=== PATIENT | female | born 2000 | race Caucasian/White ===

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

== ENCOUNTER 2021-03-16 03:52 | Outpatient (CLI) | payer MEDICAID, SELFPAY ==
[2021-03-16 11:04] LABS: Abs Immature Grans 0.01 10^3/uL (0.0-0.06); Absolute Basophil Count 0.03 10^3/uL (0.0-0.2); Absolute Eosinophil Count 0.09 10^3/uL (0.0-0.7); Absolute Lymphocyte Count 1.96 10^3/uL (1.2-3.4); Absolute Monocyte Count 0.48 10^3/uL (0.1-0.8); Absolute Neutrophil Count 3.81 10^3/uL (1.2-6.7); Basophils % 0.5; Eosinophils % 1.4; HCT 45.9 % (36.0-46.0); HGB 15.4 g/dL (11.2-15.7); Immature Grans % 0.2; Lymphocytes % 30.7; MCH 28.5 pg (27.0-33.0); MCHC 33.6 % (32.0-36.0); MPV 8.9 fL (8.0-11.0); Monocytes % 7.5; Neutrophils % 59.7; Nucleated RBC 0 %; Platelet Count 179 10^3/uL (130-400); RDW 12.1 % (11.7-14.6); RDW-SD 37.7 fL; WBC 6.38 10^3/uL (4.4-10.8)
[2021-03-16 11:53] LABS: ALT 19 U/L (14-59); AST 12 U/L (15-37); Albumin 4.3 g/dL (3.4-5.0); Alkaline Phosphatase 61 U/L (46-116); Anion Gap 6.4 mmol/L (3-11); BUN 14 mg/dL (7-18); Bilirubin, Total 0.7 mg/dL (0.2-1.0); CO2 29.6 mmol/L (21.0-32.0); CREATININE 0.9 mg/dL (0.55-1.02); Calcium 9.4 mg/dL (8.5-10.1); Chloride 105 mmol/L (98-107); Glucose 65 mg/dL (74-106); Lipase 130 U/L (73-393); Potassium 4.4 mmol/L (3.5-5.1); Sodium 141 mmol/L (136-145); TSH (W/Ref FT4) 2.04 uIU/mL (0.52-4.13); Total Protein 7.6 g/dL (6.4-8.2)
[2021-03-19 11:03] LABS: HIV-1/2 Ag & Ab Screen Negative (Negative)
[2021-03-19 11:22] LABS: Hepatitis C Ab w Rflx HCV PCR Negative (Negative)
[2021-03-19 14:08] LABS: IgA 288 mg/dL (85-499); Interpretation (See Note); Tissue Transglutaminase IgA <1.2 U/mL (<4.0)
== END 2021-03-16 03:53 | disposition home or self-care (01) ==
LOC: LBO 03:55
PROVIDERS: PCP Nurse Practitioner Adult Health; Visit Provider Nurse Practitioner Adult Health
DX: R14.0 Abdominal distension (gaseous) (principal); R41.840 Attention and concentration deficit; Z00.00 Encounter for general adult medical examination without abnormal findings; Z11.4 Encounter for screening for human immunodeficiency virus [HIV]; Z11.59 Encounter for screening for other viral diseases; L65.9 Nonscarring hair loss, unspecified
CPT/HCPCS: 36415; 80053; 82784; 83516; 83690; 86803; 87389; 84443; 85025

== ENCOUNTER 2021-05-01 12:09 | Emergency (ER) | payer MEDICAID, SELFPAY ==
[2021-05-01 12:28] VITALS: BP 98/64; PULSE 89; RESP 16; TEMP 36.9; O2SAT 99
--- NOTE | 2021-05-01 12:47 | ED.GENADUL_ITS ---
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 Details Clinical Impression: UTI (urinary tract infection) Primary Care Provider: Emilie Evans ED Provider: Gabino Mariano Home Meds and New Rx's Prescriptions: New cephalexin 500 mg capsule 500 mg PO TID 5 Days Qty: 15 RF: 0 Continued multivitamin Tablet 1 tab PO QAM Qty: 90 RF: 3 Vyvanse 30 mg capsule 50 mg PO DAILY RF: 0 Discharge Instructions Instructions: Urinary Tract Infection in Women (ED) Additional Instructions: Small, frequent sips of fluids to maintain hydration. You will receive a phone call regarding your COVID-19 results. May use Tylenol and/or ibuprofen as needed for muscular ache or pain. Return to the ER for any acute concerns. Stand Alone Forms: PENDING COVID-19 TESTING Medical Decision Making This is an otherwise healthy 20-year-old female presents with days of urinary frequency, sensation of incomplete voiding as well as lower abdominal cramping. Says has been associated with some mild body ache, fatigue, malaise, worry about being sick and also associated mild sore throat without change to voice or swallowing. Patient is slightly hypotensive 98/64 on exam with thin body habitus. She is afebrile with a pulse of 89. Her exam does reveal mild suprapubic tenderness but no other symptoms or findings. Differential is broad including viral syndrome, UTI, anemia, dehydration, electrolyte abnormality, as well as pharyngitis. Patient had negative point of care rapid strep test. Screening urinalysis and labs obtained. Patient had IV access and was given 1 L fluid. Blood work is reassuring. Patient is improving with fluids. Patient does have evidence of urinary tract infection with positive leuk esterase and some mixed cells on micro urinalysis. Given her report of symptoms I do feel she ought to be treated for acute cystitis. HPI General Mode of arrival: ambulatory . Date/Time Provider Initiated Documentation: 05/01/21 12:19 . Limitations to Documentation: no limitations . Information obtained by: patient . History of Present Illness 20 year old F presents to the emergency department with the chief complaint of Multiple complaints, urinary frequency, described as mild, and is localized to the pelvis. Patient reports no radiation. Patient started experiencing this day(s) and it has been intermittent. No relieving factors improve symptom(s), No exacerbating factors reported . Patient notes other (Mild sore throat, lower abdomen cramping with urination, incomplete voiding); denies cough, fever/chills, shortness of breath and syncope. Patient did receive the following treatments prior to arrival, none Related Data Home Medications Medication Instructions Recorded Confirmed multivitamin 1 tab PO QAM #90 tab 03/02/21 05/01/21 lisdexamfetamine 30 mg capsule 50 mg PO DAILY 04/04/21 05/01/21 cephalexin 500 mg PO TID 5 Days #15 cap 05/01/21 Previous Rx's Medication Instructions Recorded multivitamin 1 tab PO QAM #90 tab 03/02/21 cephalexin 500 mg PO TID 5 Days #15 cap 05/01/21 Allergies Allergy/AdvReac Type Severity Reaction Status Date / Time No Known Drug Allergies Allergy Verified 03/30/21 15:20 General Stated Complaint: GenMedical ZACH: 3 Review of Systems Narrative: Sick contacts at work. No vaginal discharge or bleeding. No fever at home. Tolerated liquids and solids by mouth. 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 IEP signed 10/28/2017 Dysmenorrhea (10/24/15) Poor concentration Seborrheic dermatitis of scalp (11/25/17) Followed by Dr. Noonan. Suicide attempt Overdose 2014 Surgical History (Updated 03/02/21 @ 14:32 by Emilie Evans NP) S/P foot surgery, right [place], [place] Family History Father Mental disorder Myocardial infarction ? r/t substance use Psoriasis Substance abuse Depression Diabetes Mother Mental disorder Thyroid disorder Asthma Depression Social History Smoking/Tobacco Use Status: Current every day Tobacco Type: e-cigarettes Tobacco: How many years used: 1 Second Hand Exposure: No Smoking risk assessment performed?: Yes Alcohol Intake: never Drug use: Occasionally Substance use type: marijuana Adopted: No Caregiver/Support person: No Foster care: No Household members: significant other and family Housing: other Details: unstable housing - changes 17/03 Number of Children: 0 number of grandchildren: 0 Communication Needs: None Education Level: college Details: taking college classes at [employer] Do you need help understanding health information?: Rarely Pets and animals: Yes (3 cats) Pets and animals: cat(s) Sexually active: Yes Current gender identity: female What is your relationship status?: living with partner How often do you talk on the phone with friends or family?: once per week How often do you get together with friends or relatives?: once per week Do you belong to any clubs or organized social groups?: no Panel score (0-1 are the most socially isolated patients): 1 What type of physical activity do you participate in: walking Special santos needs: No Seatbelt use: always Drive intox or ride w/intox 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 Pleasant, well groomed, interactive. HEAD: Normocephalic, atraumatic ENT: Mucous membranes moist, oropharynx unremarkable, External ear exam unremarkable EYES: PERRL, EOMI NECK: Full ROM, no STEPHEN, no menigismus CHEST/RESP: Nontender, clear to auscultation bilateral, no wheeze/rhonchi/rales CARDIOVASCULAR: RRR, no murmur, rub derrek. 2+ Rad pulse bilateral ABDOMEN: Soft, minimal suprapubic tenderness without rebound or guarding, no mass. +Bowel sounds EXT: Full ROM, no edema, no rash Neuro: Grossly normal neurologic exam, conversant, interactive. Psych: Speech fluent, thoughts congruent, affect normal Course Vital Signs Vital signs: Vital Signs Temperature 36.9 C 05/01/21 12:28 Pulse 89 05/01/21 12:28 Respiratory Rate 16 05/01/21 12:28 Blood Pressure 98/64 L 05/01/21 12:28 Pulse Oximetry 99 05/01/21 12:28 Temperature 36.9 C 05/01/21 12:28 Temperature Source Temporal Artery Scan 05/01/21 12:28 Pulse 89 05/01/21 12:28 Respiratory Rate 16 05/01/21 12:28 Respiratory Effort Non-Labored 05/01/21 12:33 Blood Pressure 98/64 L 05/01/21 12:28 Blood Pressure Position Sitting 05/01/21 12:28 Pulse Oximetry 99 05/01/21 12:28 Oxygen Delivery Method Room Air 05/01/21 12:28 Oxygen Flow Rate 0 05/01/21 12:28 Pain Level 2 05/01/21 12:28 Lab/Test Results Lab/Test Results: POC Strep Test-PEPE(Rapid) Start: 05/01/21 12:33 Freq: .Rapid Strep Test Status: Active Protocol: Document 05/01/21 12:36 EC (Rec: 05/01/21 12:36 EC [id number]) Strep test-PEPE(Rapid)-POC POC-Strep test-PEPE (Rapid) Negative POC-Strep test-PEPE (Rapid) Negative
[2021-05-01] MEDS: Normal Saline 1,000 ML 1000 ML IV (12:59)
[2021-05-01] MEDS: Normal Saline Flush 10 ML SYR IVP (12:59)
[2021-05-01 13:13] LABS: HCT 45.5 % (36.0-46.0); HGB 15.3 g/dL (11.2-15.7); MCH 28.7 pg (27.0-33.0); MCHC 33.6 % (32.0-36.0); MCV 85.2 fL (80-95); MPV 9.1 fL (8.0-11.0); Platelet Count 136 10^3/uL (130-400); RBC 5.34 10^6/uL (3.93-5.22); RDW 12.4 % (11.7-14.6); RDW-SD 38.5 fL; WBC 4.45 10^3/uL (4.4-10.8)
[2021-05-01 13:14] LABS: Bilirubin Moderate (Negative); Blood Negative (Negative); Glucose Negative (Negative); Ketones 15 mg/dL (Negative); Leukocyte Esterase Trace (Negative); Nitrite Negative (Negative); Specific Gravity >= 1.030 (1.005-1.025)
[2021-05-01 13:16] LABS: Clarity Cloudy (Clear)
[2021-05-01 13:19] LABS: Anion Gap 8.9 mmol/L (3-11); BUN 8 mg/dL (7-18); CO2 28.1 mmol/L (21.0-32.0); Calcium 8.8 mg/dL (8.5-10.1); Chloride 105 mmol/L (98-107); Glucose 74 mg/dL (74-106); Potassium 3.6 mmol/L (3.5-5.1); Sodium 142 mmol/L (136-145)
[2021-05-01 13:33] LABS: Epithelial Cells Many HPF (Negative)
[2021-05-01 13:35] LABS: C & S Indicated? No/Sq. Contamination
[2021-05-01 13:42] VITALS: BP 96/60; PULSE 77; RESP 16; TEMP 36.6; O2SAT 100
[2021-05-01] MEDS: Cephalexin 500 MG CAP, 4 CAPS/BTL PO (13:43)
[2021-05-02 15:36] LABS: COVID-19 RT-PCR UVMMC Result Negative (Negative)
--- NOTE | 2021-05-02 18:37 | NUR.NOTE ---
Called Negative Covid test to [facility]. Verbalizes understanding.Nursing Note:
== END 2021-05-01 13:46 | disposition home or self-care (01) ==
PROVIDERS: Emergency Provider Emergency Medicine; PCP Nurse Practitioner Adult Health
DX: N39.0 Urinary tract infection, site not specified (principal); R10.30 Lower abdominal pain, unspecified; J02.9 Acute pharyngitis, unspecified; Z20.822 Contact with and (suspected) exposure to COVID-19; Z03.818 Encounter for observation for suspected exposure to other biological agents ruled out
CPT/HCPCS: 36415; 80048; 81025; 85027; 87880; 96360; 99284; U0003; 81003; 81015; 87081

== ENCOUNTER 2023-12-03 07:30 | Emergency (ER) | payer SELFPAY ==
[2023-12-03 07:32] VITALS: BP 127/78; PULSE 102; RESP 18; TEMP 36.4; O2SAT 100
--- NOTE | 2023-12-03 07:34 | ED.GENADUL_ITS ---
Discharge Plan Disposition Patient Disposition: Home Discharge Details Clinical Impression: Pyelonephritis Primary Care Provider: Emilie Evans ED Provider: Nima Ellis Home Meds and New Rx's Prescriptions: New ondansetron 4 mg tablet,disintegrating 4 mg PO BID 5 Days Qty: 10 0RF cefadroxil 500 mg capsule 1,000 mg PO BID 10 Days Qty: 40 0RF Discharge Instructions Instructions: Urinary Tract Infection in Women (ED) Additional Instructions: You were seen in the emergency department for your burning when you urinate. You were diagnosed with pyelonephritis as an infection of your kidneys. You received a dose of intramuscular antibiotics. Please take these antibiotics as prescribed for the next 10 days. Please also use this nausea medicine as needed. Please return to the emergency department if you cannot eat or drink as result of nausea and vomiting or if you develop any increasing pain. For your pain please take medications as follows: 1. Take acetaminophen (Tylenol), 500 mg tabs every 6 hours [2. Take ibuprofen (Advil), 00 mg every 12 hours.] HPI General Date/Time Provider Initiated Documentation: 12/03/23 07:34 . HPI Narrative: MDM This is a previously healthy mildly tachycardic but afebrile 23-year-old female with complicated cystitis based on urinary frequency dysuria urgency plus systemic symptoms of nausea vomiting for which patient will receive treatment for pyelonephritis with 1 g of ceftriaxone. Will assess electrolytes given vomiting. No right upper quadrant tenderness to suggest Mamadou-Isidro Og syndrome. No abnormal vaginal discharge to suggest sexually transmitted infe ction. No pain out of proportion to suggest necrotizing soft tissue infection. No flank pain or history of nephrolithiasis to suggest ureterolithiasis so I do not feel that the patient requires CT scan. Will obtain a urinalysis to ensure the patient is not . No right lower quadrant tenderness no fevers to suggest appendicitis. No left lower quadrant tenderness to suggest diverticulitis. No right upper quadrant tenderness to suggest acute cholecystitis. No chest pain to suggest PE. No rash to abdomen to suggest zoster. I considered sepsis however the patient is quite well-appearing and so I did not draw a lactate blood cultures nor treat empirically with IV antibiotics. 7:55 AM [id number] test negative. 8:04 AM Urinalysis showing hematuria with leukoesterase and glucosuria. Nitrite negative but based on symptoms we will treat with ceftriaxone. Patient did not consent for an IV to be placed as she had had prior poor experiences with IV use. She was amenable to ceftriaxone intramuscularly. Will ensure her mild tachycardia resolves and will write her with a course of cefadroxil 1000 mg every 12 hours based on ease of dosing. We discussed return to the ED for intractable nausea vomiting or any worsening pain. I also prescribed her a short course of ondansetron for nausea. Repeat heart rate 83 bpm. Patient and I discussed her return indications. Patient understood her return indications and was discharged with an empiric trial of expectant outpatient management. 10 AM CBC shows leukocytosis but no anemia. No thrombocytopenia. Patient metabolic panel showing no BRAYDON. No anion gap. No hyperglycemia. 10:27 AM Patient became quite anxious with IV placement and was mildly tachycardic at the time of discharge. She had had a normal heart rate during the course of her ED stay. Chronic conditions affecting the care of the patient: N/A History obtained from an outside historian: N/A External record review: N/A Medications: Ondansetron ceftriaxone Social determinants of health affecting disposition: N/A Management discussed with: N/A Treatment/interventions considered: N/A Response to therapies provided: No vomiting in the ED HPI This is a previously healthy 23-year-old female up-to-date with immunizations not on any home medications arrived to the emergency department via private vehicle in the setting of urinary frequency hematuria dysuria for the past approximately 1 week. Patient attempted to treat her symptoms by drinking lots of water. Her symptoms transiently improved but then worsened. She has been in [place] for the past 4 to 5 days and had worsening symptoms. She woke up this morning with suprapubic discomfort and vomited. This was at 5 AM. She has no history of nephrolithiasis. She has had no surgeries to her stomach. She uses tobacco but denies routine ethanol and illicits. She has had no fevers chills chest pain or shortness of breath. Patient is sexually active with a male partner. She denies abnormal vaginal discharge. Exam General: Well-appearing in no acute distress speaking in complete sentences. Head: Normocephalic, atraumatic. Eye: Extraocular eye movements intact. No conjunctival injection. No scleral icterus. Ear, nose, mouth, throat: Grossly normal inspection. Normal voice, handling secretions normally. Neck: Trachea midline. Cardiovascular: Well-perfused distal extremities. Regular rate and rhythm Respiratory: Nonlabored respiration. Clear lungs bilaterally Gastrointestinal: Nondistended abdomen. Soft. Mild suprapubic tenderness. No rebound. No guarding. No right lower quadrant tenderness. No left lower quadrant tenderness. No right upper quadrant tenderness. Musculoskeletal: No edema. Moving all 4 extremities spontaneously. Skin: Normal for age and race, grossly normal temperature and turgor. No acute rash. Neurologic: Alert and appropriate, no apparent acute deficits. Psychiatric: Mood and manner are appropriate. Grooming and personal hygiene are appropriate. Related Data Home Medications Medication Instructions Recorded Confirmed cefadroxil 500 mg capsule 1,000 mg (2 x 500 mg) PO BID 12/03/23 days #40 caps ondansetron 4 mg disintegrating 4 mg PO BID 5 days #10 tabs 12/03/23 tablet Previous Rx's Medication Instructions Recorded cefadroxil 500 mg capsule 1,000 mg (2 x 500 mg) PO BID 12/03/23 days #40 caps ondansetron 4 mg disintegrating 4 mg PO BID 5 days #10 tabs 12/03/23 tablet Allergies Allergy/AdvReac Type Severity Reaction Status Date / Time No Known Drug Allergies Allergy Verified 03/30/21 15:20 General ZACH: 3 Medical Decision Making Quality:SDOH Health Related Social Needs: No Data to Display PFSH All Active Problems (Updated 12/03/23 @ 08:06 by Nima Ellis MD) Pyelonephritis (Acute) UTI (urinary tract infection) (Acute) Generalized anxiety disorder (Acute) Major depression in partial remission (Acute) ADHD (attention deficit hyperactivity disorder), combined type (Acute) Poor concentration (Acute) Abdominal bloating (Acute) Seborrheic dermatitis of scalp (Chronic 11/25/17) Followed by Dr. Noonan. 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 IEP signed 10/28/2017 Dysmenorrhea (10/24/15) Poor concentration Seborrheic dermatitis of scalp (11/25/17) Followed by Dr. Noonan. Suicide attempt Overdose 2015 Surgical History (Updated 07/09/21 @ 14:32 by Emilie Evans NP) S/P foot surgery, right [facility], [place] Family History Father Mental disorder Myocardial infarction ? r/t substance use Psoriasis Substance abuse Depression Diabetes Mother Mental disorder Thyroid disorder Asthma Depression Social History Smoking/Tobacco Use Status: Current every day Tobacco Type: e-cigarettes Tobacco: How many years used: 1 Second Hand Exposure: No Smoking risk assessment performed?: Yes Alcohol Intake: never Drug use: Occasionally Substance use type: marijuana Adopted: No Caregiver/Support person: No Foster care: No Household members: significant other and family Housing: other Details: unstable housing - changes 17/03 Number of Children: 0 number of grandchildren: 0 Communication Needs: None Education Level: college Details: taking college classes at [employer] Do you need help understanding health information?: Rarely Pets and animals: Yes (3 cats) Pets and animals: cat(s) Sexually active: Yes Current gender identity: female What is your relationship status?: living with partner How often do you talk on the phone with friends or family?: once per week How often do you get together with friends or relatives?: once per week Do you belong to any clubs or organized social groups?: no Panel score (0-1 are the most socially isolated patients): 1 What type of physical activity do you participate in: walking Special santos needs: No Seatbelt use: always Drive intox or ride w/intox 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
[2023-12-03 07:39] VITALS: O2SAT 98
[2023-12-03 07:52] LABS: Bilirubin Small (Negative); Blood Small (Negative); Clarity Cloudy (Clear); Glucose 100 mg/dL (Negative); Ketones 40 mg/dL (Negative); Leukocyte Esterase Small (Negative); Nitrite Negative (Negative); Specific Gravity >= 1.030 (1.005-1.025); pH 5.5 (5-8)
[2023-12-03 08:10] VITALS: BP 104/57; PULSE 83; RESP 16; TEMP 36.5; O2SAT 98
[2023-12-03 08:17] LABS: Bacteria Few HPF (Negative); C & S Indicated? No/Sq. Contamination; Crystals Negative HPF (Negative); Epithelial Cells Moderate HPF (Negative); Mucus Trace (Negative); WBC >50 HPF (0-5)
[2023-12-03] MEDS: Ondansetron O.D.T. 4 MG TABEF PO (08:22)
[2023-12-03 09:46] LABS: Abs Immature Grans 0.05 10^3/uL (0.0-0.06); Absolute Basophil Count 0.04 10^3/uL (0.0-0.2); Absolute Eosinophil Count 0.04 10^3/uL (0.0-0.7); Basophils % 0.3; Eosinophils % 0.3; HCT 45.2 % (36.0-46.0); HGB 15.7 g/dL (11.2-15.7); Immature Grans % 0.3; Lymphocytes % 6.5; MCH 29.3 pg (27.0-33.0); MCHC 34.7 % (32.0-36.0); MCV 84 fL (80-95); Monocytes % 4.4; Neutrophils % 88.2; Platelet Count 185 10^3/uL (130-400); RBC 5.36 10^6/uL (3.93-5.22); RDW 11.9 % (11.7-14.6); RDW-SD 35.8 fL
[2023-12-03] MEDS: cefTRIAXone 1 GM/50 ML BAG IVPB (09:49)
[2023-12-03] MEDS: Normal Saline 1,000 ML 1000 ML IV (09:50)
[2023-12-03 09:54] LABS: Absolute Lymphocyte Count 0.96 10^3/uL (1.2-3.4); Absolute Monocyte Count 0.65 10^3/uL (0.1-0.8); Absolute Neutrophil Count 12.97 10^3/uL (1.2-6.7)
[2023-12-03 09:56] LABS: Anion Gap 9.1 mmol/L (3-11); BUN 10 mg/dL (7-18); CO2 28.9 mmol/L (21.0-32.0); CREATININE 0.9 mg/dL (0.55-1.02); Chloride 103 mmol/L (98-107); Glucose 92 mg/dL (74-106); Potassium 4.2 mmol/L (3.5-5.1); Sodium 141 mmol/L (136-145)
[2023-12-03 10:23] VITALS: BP 102/70; PULSE 100; RESP 18; O2SAT 98
== END 2023-12-03 10:23 | disposition home or self-care (01) ==
LOC: ER 08:19
PROVIDERS: Emergency Provider Emergency Medicine; PCP Nurse Practitioner Adult Health
DX: N12 Tubulo-interstitial nephritis, not specified as acute or chronic (principal); F17.290 Nicotine dependence, other tobacco product, uncomplicated
CPT/HCPCS: 80048; 81025; 96365; 96372; 96375; 99284; 81003; 81015; 85025; J0696

== ENCOUNTER 2024-02-22 21:50 | Emergency (ER) | payer SELFPAY ==
[2024-02-22 22:20] VITALS: BP 119/82; PULSE 90; RESP 22; TEMP 36.6; O2SAT 100
--- NOTE | 2024-02-22 23:09 | ED.GENADUL_ITS ---
Discharge Plan Disposition Patient Disposition: Home Condition: Stable Discharge Details Clinical Impression: Acute streptococcal pharyngitis Primary Care Provider: Emilie Evans ED Provider: Khoa Greco Home Meds and New Rx's Prescriptions: New penicillin V potassium 500 mg tablet 500 mg PO TID 10 Days Qty: 30 0RF Discharge Instructions Instructions: Strep Throat ED Additional Instructions: Please help with your primary physician. Return to the emerged part for any worsening symptoms HPI General Date/Time Provider Initiated Documentation: 02/22/24 22:29 . HPI Narrative: 23-year-old female history of recurrent strep presents with sore throat over the last couple of days completed course of Augmentin last month Related Data Home Medications Medication Instructions Recorded Confirmed penicillin V potassium 500 mg 500 mg PO TID 10 days #30 tabs 02/22/24 tablet Previous Rx's Medication Instructions Recorded penicillin V potassium 500 mg 500 mg PO TID 10 days #30 tabs 02/22/24 tablet Allergies Allergy/AdvReac Type Severity Reaction Status Date / Time No Known Drug Allergies Allergy Verified 03/30/21 15:20 General Stated Complaint: Sorethroat ZACH: 4 Review of Systems Narrative: Review of Systems Constitutional: negative Eyes: negative ENT: Sore throat Cardiovascular: negative Respiratory: negative Gastrointestinal: negative : negative Musculoskeletal: negative Skin: negative Neurologic: negative Psych: negative Exam Narrative Exam Narrative: Physical Examination General: alert, awake, cooperative, resting comfortably, no acute distress HEENT: normocephalic, atraumatic; PERRL, EOM intact, conjunctiva normal; no nasal discharge; mild erythema to bilateral tonsils without exudate, midline uvula, tolerating secretions no stridor Neck: supple, trachea midline; full ROM Chest: normal to inspection Respiratory: normal respiratory effort, speaking in full sentences, clear to auscultation, no wheezing, rales or rhonchi Cardiac: regular rate, regular rhythm, S1S2 intact, no murmurs rubs or gallops Skin: no lesions, rashes or trauma appreciated Neuro: AAOx3, normal speech, moving all extremities Psych: Appropriate mood and affect Course Vital Signs Vital signs: Vital Signs Temperature 36.6 C 02/22/24 22:20 Pulse 90 02/22/24 22:20 Respiratory Rate 02/22/24 22:20 Blood Pressure 119/82 02/22/24 22:20 Pulse Oximetry 100 02/22/24 22:20 Temperature 36.6 C 02/22/24 22:20 Temperature Source Temporal Artery Scan 02/22/24 22:20 Pulse 90 02/22/24 22:20 Respiratory Rate 22 02/22/24 22:20 Respiratory Effort Normal, Non-Labored 02/22/24 22:25 Blood Pressure 119/82 02/22/24 22:20 Blood Pressure Position Sitting 02/22/24 22:20 Pulse Oximetry 100 02/22/24 22:20 Oxygen Delivery Method Room Air 02/22/24 22:20 Oxygen Flow Rate 0 02/22/24 22:20 Lab/Test Results Lab/Test Results: POC Strep Test-PEPE(Rapid) Start: 02/22/24 22:54 Freq: .Rapid Strep Test Status: Active Protocol: Document 02/22/24 22:55 LB (Rec: 02/22/24 22:55 LB [id number]) Strep test-PEPE(Rapid)-POC POC-Strep test-PEPE (Rapid) Positive POC-Strep test-PEPE (Rapid) Positive Medical Decision Making 23-year-old female presents with recurrent sore throat, strep throat last month treated with Augmentin, sore throat over the last couple of days mildly erythematous tonsils bilaterally without exudate, midline uvula tolerating secretions no stridor afebrile nontoxic no hypoxia no respiratory distress. Likely recurrent pharyngitis, strep positive will treat with penicillin V will dose dexamethasone, home care instructions return precautions given. No evidence of deep space infection of head or neck. No evidence of airway compromise Quality:SDOH Health Related Social Needs: No Data to Display PFSH All Active Problems (Updated 02/22/24 @ 23:12 by Khoa Greco MD) Acute streptococcal pharyngitis (Acute) UTI (urinary tract infection) (Acute) Generalized anxiety disorder (Acute) Major depression in partial remission (Acute) ADHD (attention deficit hyperactivity disorder), combined type (Acute) Poor concentration (Acute) Abdominal bloating (Acute) Seborrheic dermatitis of scalp (Chronic 11/25/17) Followed by Dr. Noonan. 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 IEP signed 10/28/2017 Dysmenorrhea (10/24/15) Poor concentration Seborrheic dermatitis of scalp (11/25/17) Followed by Dr. Noonan. Suicide attempt Overdose 2014 Surgical History (Updated 03/02/21 @ 14:32 by Emilie Evans NP) S/P foot surgery, right [place], [place] Family History Father Mental disorder Myocardial infarction ? r/t substance use Psoriasis Substance abuse Depression Diabetes Mother Mental disorder Thyroid disorder Asthma Depression Social History Smoking/Tobacco Use Status: Current every day Tobacco Type: cigarettes and e- cigarettes Tobacco: How many years used: 1 Second Hand Exposure: No Smoking risk assessment performed?: Yes Alcohol Intake: current Alcohol Intake frequency: a few times a month Drug use: Occasionally Substance use type: marijuana Details: shrooms Adopted: No Caregiver/Support person: No Foster care: No Household members: significant other and family Housing: other Details: unstable housing - changes 17/03 Number of Children: 0 number of grandchildren: 0 Communication Needs: None Education Level: college Details: taking college classes at [employer] Do you need help understanding health information?: Rarely Pets and animals: Yes (3 cats) Pets and animals: cat(s) Sexually active: Yes Current gender identity: female What is your relationship status?: living with partner How often do you talk on the phone with friends or family?: once per week How often do you get together with friends or relatives?: once per week Do you belong to any clubs or organized social groups?: no Panel score (0-1 are the most socially isolated patients): 1 What type of physical activity do you participate in: walking Special santos needs: No Seatbelt use: always Drive intox or ride w/intox bus 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 supervisor: No Water heater temp set <120 deg: Yes Do you feel safe at home: Yes Do you feel safe in your relationship?: Yes History History 2 Para Hx # Term Pregnancies Multiple births Hx # Pregnancies Ectopic pregnancies AB induced 1 Hx Number of Living Children AB spontaneous 1 PAWSS Have you Been Recently Intoxicated or Drunk Within the Last 30 days?: No Have you Ever Experienced Previous Episodes of Alcohol Withdrawal?: No Have you ever Experienced Withdrawal Seizures?: No Have you ever Experienced Delirium Tremens(DT)s?: No Have you ever undergone Alcohol Rehabilitation Treatment (i.e, inpt ot outpatient treatment programs)?: No Have you ever Experienced Blackouts?: No Have you ever Combined Alcohol with other Downers within the last 90 days?: No Have you ever Combined Alcohol with any other Substance of Abuse during the last 90 days?: No Positive Blood Alcohol level on Presentation? [PCS.BAL]: No Evidence of Increased Autonomic Activity (i.e. HR>120, tremor, sweating, agitation, nausea)?: No Result: 0
[2024-02-22] MEDS: Penicillin V POTASSIUM 500 MG TAB PO (23:19)
[2024-02-22] MEDS: Dexamethasone 4 MG TAB 8 MG PO (23:19)
== END 2024-02-22 23:21 | disposition home or self-care (01) ==
PROVIDERS: Emergency Provider Emergency Medicine; PCP Nurse Practitioner Adult Health
DX: J02.0 Streptococcal pharyngitis (principal)
CPT/HCPCS: 87880; 99283; 99284; J8540

== ENCOUNTER 2024-06-27 13:28 | Emergency (ER) | payer MEDICAID, SELFPAY ==
[2024-06-27 13:35] VITALS: BP 108/72; PULSE 87; RESP 16; TEMP 36.8; O2SAT 100
[2024-06-27 14:00] VITALS: BP 108/72; PULSE 87; RESP 16; TEMP 36.8; O2SAT 100
--- NOTE | 2024-06-27 14:30 | ED.GENADUL_ITS ---
Discharge Plan Disposition Patient Disposition: Home Condition: Good Discharge Details Clinical Impression: Bacterial vaginosis, Genital labial fissure, Emergency contraceptive counseling, UTI (urinary tract infection) Primary Care Provider: Emilie Evans ED Provider: Costa Painter Home Meds and New Rx's Prescriptions: New metronidazole 500 mg tablet 500 mg PO BID 7 Days Qty: 14 0RF estradiol 1 mg/gram (0.1 %) gel in packet 1 mg transdermal DAILY Qty: 30 0RF cephalexin 500 mg capsule 500 mg PO QID 5 Days Qty: 20 0RF Discharge Instructions Instructions: Metronidazole (Systemic), Levonorgestrel (Systemic), Bacterial Vaginosis ED Additional Instructions: As we discussed together at this time you do have continued evidence of bacterial vaginosis. Please take the metronidazole as directed. Please avoid alcohol use. At this time you have decided to hold off on prophylactic go norrhea and chlamydia treatment. You will be contacted if your test results are positive. If you have not heard back in the next few days for the test results, please do not hesitate to reach out to us. In regards to the small labial fissure, please apply the estradiol cream every day to the affected area. In between these applications please apply Vaseline to that area to help in the mucous membrane and skin rejuvenation. Please avoid any intercourse for the next 2 to 4 weeks to allow that area to heal thoroughly. And when you do regain intercourse, please use plenty of lubrication to prevent any trauma to that area. Please make sure to always utilize protection for your partners. Additionally you have a urinary tract infection. Please take the antibiotic Keflex as directed. If you notice any worsening of your symptoms, or any new symptoms such as vomiting, diarrhea, fever, chills, shortness of breath, chest pain, numbness, weakness, or fainting , please return immediately to the emergency department for reevaluation. Please follow up with your primary care provider as soon as possible for reassessment and reevaluation. As always, it was a pleasure participating in your medical care today. Referrals: Emilie Evans, [employer] [Primary Care Provider] - Iliana Mcdaniel MD [ [facility] STAFF PHYSICIAN] - [facility] General Date/Time Provider Initiated Documentation: 06/27/24 13:41 . HPI Narrative: This is a 23-year-old female who presents today for evaluation of genital pain. Patient states that over the last year she has noticed notable pain and sensitivity by her left labia. She is sexually active, and does not currently use protection. Patient states that this has been going on for some time. However about 2 weeks ago in addition to this pain she noted significant vaginal discharge. She was tested at [facility] for gonorrhea and chlamydia which was negative. She was tested for bacterial vaginosis which was positive and vaginal yeast infection which was also positive. She initially was treated with Monistat, and then without improvement she was transition to oral fluconazole x 2. She was also given metronidazole gel for bacterial vaginosis. She avoided sexual intercourse for about a week and 1/2 to 2 weeks, and all of her symptoms resolved for about 48 hours, and then yesterday she had an episode of unprotected intercourse which she states she does not remember all of the details of. She states that it may have been somewhat rough, and states that she immediately had left-sided labial pain again and mild swelling. She presents today for further assessment. She does admit to mild urinary frequency. She has been taking oral contraceptive for the past week. Last menstrual cycle was about a month ago. No other complaints at this time. She denies being assaulted. She denies rape. She states that she does not want any further evaluation in regards to that. Related Data Home Medications ?Medication ?Instructions ?Recorded ?Confirmed cephalexin 500 mg capsule 500 mg PO QID 5 days #20 caps 06/27/24 estradiol 1 mg/gram (0.1 %) 1 mg transdermal DAILY #30 grams 06/27/24 transdermal gel packet metronidazole 500 mg tablet 500 mg PO BID 7 days #14 tabs 06/27/24 Previous Rx's ?Medication ?Instructions ?Recorded cephalexin 500 mg capsule 500 mg PO QID 5 days #20 caps 06/27/24 estradiol 1 mg/gram (0.1 %) 1 mg transdermal DAILY #30 grams 06/27/24 transdermal gel packet metronidazole 500 mg tablet 500 mg PO BID 7 days #14 tabs 06/27/24 Allergies Allergy/AdvReac Type Severity Reaction Status Date / Time No Known Drug Allergies Allergy none Verified 06/27/24 13:45 General Stated Complaint: Urinary ZACH: 4 Review of Systems All systems reviewed & are unremarkable except as noted in HPI and below Exam Narrative Exam Narrative: 1.Const: Well-nourished, Well-developed, appearing stated age 2.Eyes: PERRL, no conjunctival injection, and symmetrical lids. 3.ENT: Atraumatic external nose and ears. Moist MM. Neck: Symmetric, trachea midline, No thyromegaly. 4.CVS: +S1/S2, Peripheral pulses 2+ and equal in all extremities. Brisk cap illary refill in all extremities. 5.RESP: Unlabored respiratory effort. Clear to auscultation bilaterally. No wheezes rales or rhonchi 6.GI: Soft, Nontender/Nondistended, No hepatosplenomegaly. No guarding or rebound. Vaginal exam was performed with female nurse Ana Paula at bedside. Vaginal exam demonstrates no significant vaginal discharge. No ulcers or cuts. No active bleeding. Right vaginal area and labia are nontender. Left posterior labia demonstrates what appears to be a small lateral fissure along the lateral border of the labia for the inferior component. There also appears to be a very small fissure in the inferior crux of the vagina. Speculum exam because notable tenderness in that area. And mild pain with insertion. No large amount of discharge intravaginally. However there is a small scant amount of discharge present. No cervical motion tenderness. Cervix itself is nonerythematous. No large lesions that I can visualize. Bimanual exam is negative for pain. 7.MSK: Normocephalic/Atraumatic, Extremities w/o deformity or ttp No cyanosis or clubbing, Normal movement of all extremities 8.Skin: Warm, Dry. No rashes or lesions. 9.Neuro: clinical product specialist II-XII grossly intact. Sensation grossly intact, no focal neurologic deficits. 10.Psych: (AAO) x3. Appropriate mood and affect Course Vital Signs Vital signs: Vital Signs Temperature 36.8 C 06/27/24 13:35 Pulse 87 06/27/24 13:35 Respiratory Rate 16 06/27/24 13:35 Blood Pressure 108/72 06/27/24 13:35 Pulse Oximetry 100 06/27/24 13:35 Temperature 36.8 C 06/27/24 14:00 Temperature Source Temporal Artery Scan 06/27/24 14:00 Pulse 87 06/27/24 14:00 Respiratory Rate 16 06/27/24 14:00 Respiratory Effort Normal, Non-Labored 06/27/24 13:46 Blood Pressure 108/72 06/27/24 14:00 Blood Pressure Position Sitting 06/27/24 14:00 Pulse Oximetry 100 06/27/24 14:00 Oxygen Delivery Method Room Air 06/27/24 14:00 Oxygen Flow Rate 0 06/27/24 14:00 Pain Level 4 06/27/24 14:00 Lab/Test Results Lab/Test Results: 06/27/24 14:27 Vaginal Vaginitis Screen - Pending Medical Decision Making This is a 23-year-old female who presents today for evaluation of genital pain. Patient states that over the last year she has noticed notable pain and sensitivity by her left labia. She is sexually active, and does not currently use protection. Patient states that this has been going on for some time. However about 2 weeks ago in addition to this pain she noted significant vaginal discharge. She was tested at [facility] for gonorrhea and chlamydia which was negative. She was tested for bacterial vaginosis which was positive and vaginal yeast infection which was also positive. She initially was treated with Monistat, and then without improvement she was transition to oral fluconazole x 2. She was also given metronidazole gel for bacterial vaginosis. She avoided sexual intercourse for about a week and 1/2 to 2 weeks, and all of her symptoms resolved for about 48 hours, and then yesterday she had an episode of unprotected intercourse which she states she does not remember all of the details of. She states that it may have been somewhat rough, and states that she immediately had left-sided labial pain again and mild swelling. She presents today for further assessment. She does admit to mild urinary frequency. She has been taking oral contraceptive for the past week. Last menstrual cycle was about a month ago. No other complaints at this time. She denies being assaulted. She denies rape. She states that she does not want any further evaluation in regards to that. Vaginal exam was performed with female nurse Ana Paula at bedside. Vaginal exam demonstrates no significant vaginal discharge. No ulcers or cuts. No active bleeding. Right vaginal area and labia are nontender. Left posterior labia demonstrates what appears to be a small lateral fissure along the lateral border of the labia for the inferior component. There also appears to be a very small fissure in the inferior crux of the vagina. Speculum exam because notable tenderness in that area. And mild pain with insertion. No large amount of discharge intravaginally. However there is a small scant amount of discharge present. No cervical motion tenderness. Cervix itself is nonerythematous. No large lesions that I can visualize. Bimanual exam is negative for pain. My concern is for potential mild labial fissure causing the majority of her pain. While there certainly could still be underlying component of bacterial vaginosis or Rose to the cause of her pain I do not see symptoms that would be consistent with pelvic inflammatory disease that she has no cervical motion tenderness or severe significant cervical discharge. I did contact Dr. Mcdaniel for her recommendations for this fissure, and recommendations include estradiol ointment apply daily, alternatively betamethasone ointment would be an option. Also recommended daily Vaseline application and abstinence as possible. We will recheck for infectious etiologies, monitor closely and reassess. 4 3 PM Vaginal smear is positive for bacterial vaginosis, urinalysis is positive for UTI with trace leuk esterase and 20-50 WBCs. Patient has declined prophylactic treatment for gonorrhea chlamydia and will await test results instead. Patient is requesting Plan B. She does not want any further counseling or help in regards to this otherwise. We will get this. For the UTI we will give Keflex, for the prolonged bacterial vaginosis will give oral metronidazole, we have instructed her on the avoidance of alcohol consumption. We we will give a prescription for the estradiol ointment, as well as the recommendations for Vaseline use, pelvic rest, the importance of protection during intercourse, and close follow-up. She has declined referral to OB, but we will give her their number if she does change her mind. Patient is otherwise stable. test negative here. I have extensively reviewed the treatment plan and discharge instructions with the patient. I have addressed all patient concerns at this time. The patient was made aware of what symptoms to monitor for that would warrant a return to the emergency department. Discussed the plan with the patient, they demonstrate verbal understanding and agreement with our assessment and plan at this time. The documentation in this chart was dictated using beatlab dictation software. Please excuse any dictation errors. Quality:SDOH Health Related Social Needs: No Data to Display PFSH All Active Problems (Updated 06/27/24 @ 16:04 by Costa Painter DO) UTI (urinary tract infection) (Acute) Emergency contraceptive counseling (Acute) Genital labial fissure (Acute) Bacterial vaginosis (Acute) UTI (urinary tract infection) (Acute) Generalized anxiety disorder (Acute) Major depression in partial remission (Acute) ADHD (attention deficit hyperactivity disorder), combined type (Acute) Poor concentration (Acute) Abdominal bloating (Acute) Seborrheic dermatitis of scalp (Chronic 11/25/17) Followed by Dr. Noonan. 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 IEP signed 10/28/2017 Surgical History S/P foot surgery, right [place], [place] Family History Father Mental disorder Myocardial infarction ? r/t substance use Psoriasis Substance abuse Depression Diabetes Mother Mental disorder Thyroid disorder Asthma Depression Social History Smoking/Tobacco Use Status: Current every day Tobacco Type: cigarettes and e- cigarettes Tobacco: How many years used: 1 Second Hand Exposure: No Smoking risk assessment performed?: Yes Alcohol Intake: current Alcohol Intake frequency: a few times a month Alcohol type: hard liquor Details: shrooms user Adopted: No Caregiver/Support person: No Foster care: No Household members: significant other and family Housing: other Details: unstable housing - changes 17/03 Number of Children: 0 number of grandchildren: 0 Communication Needs: None Education Level: college Details: taking college classes at [employer] Do you need help understanding health information?: Rarely Pets and animals: Yes (3 cats) Pets and animals: cat(s) Sexually active: Yes Current gender identity: female What is your relationship status?: living with partner How often do you talk on the phone with friends or family?: once per week How often do you get together with friends or relatives?: once per week Do you belong to any clubs or organized social groups?: no Panel score (0-1 are the most socially isolated patients): 1 What type of physical activity do you participate in: walking Special santos needs: No Seatbelt use: always Drive intox or ride w/intox shuttle van driver: No Water heater temp set <120 deg: Yes Do you feel safe at home: Yes Do you feel safe in your relationship?: Yes History History 2 Para Hx # Term Pregnancies Multiple births Hx # Pregnancies Ectopic pregnancies AB induced 1 Hx Number of Living Children AB spontaneous 1 PAWSS Have you Been Recently Intoxicated or Drunk Within the Last 30 days?: Yes Have you Ever Experienced Previous Episodes of Alcohol Withdrawal?: No Have you ever Experienced Withdrawal Seizures?: No Have you ever Experienced Delirium Tremens(DT)s?: No Have you ever undergone Alcohol Rehabilitation Treatment (i.e, inpt ot outpatient treatment programs)?: No Have you ever Experienced Blackouts?: No Have you ever Combined Alcohol with other Downers within the last 90 days?: No Have you ever Combined Alcohol with any other Substance of Abuse during the last 90 days?: No Positive Blood Alcohol level on Presentation? [PCS.BAL]: No Evidence of Increased Autonomic Activity (i.e. HR>120, tremor, sweating, agitation, nausea)?: No Result: 1
[2024-06-27 14:44] LABS: Bilirubin Negative (Negative); Blood Negative (Negative); Clarity Clear (Clear); Glucose Negative (Negative); Ketones Negative (Negative); Leukocyte Esterase Trace (Negative); Nitrite Negative (Negative); Specific Gravity 1.015 (1.005-1.025); pH >= 9.0 (5-8)
[2024-06-27 14:54] LABS: Bacteria Rare HPF (Negative); C & S Indicated? No/Sq. Contamination; Casts Negative LPF (Negative); Crystals Negative HPF (Negative); Epithelial Cells Moderate HPF (Negative); Mucus Negative (Negative); Other Cells Rare Transitional (Negative); RBC 0-2 HPF (0-2); WBC 20-50 HPF (0-5)
[2024-06-27 16:13] VITALS: BP 118/65; PULSE 88; RESP 18; TEMP 37.1; O2SAT 100
[2024-06-27] MEDS: Levonorgestrel 1.5 MG KIT/PACKET PO (16:13)
[2024-06-29 12:04] LABS: Chlamydia Result Negative (Negative); GC Result Negative (Negative)
== END 2024-06-27 16:14 | disposition home or self-care (01) ==
PROVIDERS: Emergency Provider Student in an Organized Health Care Education/Training Program; PCP Nurse Practitioner Adult Health
DX: N76.0 Acute vaginitis (principal); B96.89 Other specified bacterial agents as the cause of diseases classified elsewhere; R23.4 Changes in skin texture; N39.0 Urinary tract infection, site not specified; F17.210 Nicotine dependence, cigarettes, uncomplicated; F17.290 Nicotine dependence, other tobacco product, uncomplicated
CPT/HCPCS: 87491; 87591; 99284; 81003; 81015; 87480; 87510; 87660

== ENCOUNTER 2024-10-17 21:52 | Emergency (ER) | payer SELFPAY ==
[2024-10-17 21:55] VITALS: BP 117/74; PULSE 100; RESP 18; TEMP 36.5; O2SAT 100
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
--- NOTE | 2024-10-17 22:30 | RT.EKG_ITS ---
APPROVED REPORT Exam: Resting ECG Reason for Exam: palpitations Patient Location: E HR:93 bpm ECG Measurements Heart Rate 93 AXIS WI 149 P 74 QRSd 73 QRS 68 QT 342 T 54 QTc 425 Conclusion Sinus rhythm...normal P axis, V-rate 60- 99 I have reviewed and interpreted ECG and agree with software generated interpretation.
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
[2024-10-17 23:04] LABS: Abs Immature Grans 0.02 10^3/uL (0.0-0.06); Absolute Basophil Count 0.03 10^3/uL (0.0-0.2); Absolute Eosinophil Count 0.25 10^3/uL (0.0-0.7); Absolute Lymphocyte Count 2.77 10^3/uL (1.2-3.4); Absolute Monocyte Count 0.56 10^3/uL (0.1-0.8); Absolute Neutrophil Count 4.38 10^3/uL (1.2-6.7); Basophils % 0.4 %; Eosinophils % 3.1 %; HCT 43.3 % (36.0-46.0); HGB 14.5 g/dL (11.2-15.7); Immature Grans % 0.2 %; Lymphocytes % 34.6 %; MCH 29.4 pg (27.0-33.0); MCHC 33.5 % (32.0-36.0); MCV 88 fL (80-95); MPV 8.7 fL (8.0-11.0); Neutrophils % 54.7 %; Platelet Count 176 10^3/uL (130-400); RBC 4.93 10^6/uL (3.93-5.22); RDW 12.6 % (11.7-14.6); RDW-SD 40.3 fL; WBC 8.01 10^3/uL (4.4-10.8)
[2024-10-17] MEDS: Normal Saline 1,000 ML 1000 ML IV (23:04)
[2024-10-17 23:31] LABS: ALT 24 U/L (14-59); AST 17 U/L (15-37); Albumin 3.9 g/dL (3.4-5.0); Alkaline Phosphatase 60 U/L (46-116); Anion Gap 6.2 mmol/L (3-11); BUN 10 mg/dL (7-18); Bilirubin, Total 0.37 mg/dL (0.2-1.0); CO2 28.8 mmol/L (21.0-32.0); Calcium 8.8 mg/dL (8.5-10.1); Chloride 107 mmol/L (98-107); Estimated GFR 81.18 (mL/min/1.73m2); Glucose 92 mg/dL (74-106); Potassium 3.7 mmol/L (3.5-5.1); Sodium 142 mmol/L (136-145); TSH (W/Ref FT4) 3.13 uIU/mL (0.36-3.74); Total Protein 7.1 g/dL (6.4-8.2)
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
[2024-10-17 23:55] VITALS: BP 88/50; PULSE 90; RESP 14; O2SAT 98
[2024-10-18 01:17] VITALS: BP 92/62; PULSE 84; RESP 16; O2SAT 97
== END 2024-10-18 01:18 | disposition home or self-care (01) ==
PROVIDERS: Emergency Provider Student in an Organized Health Care Education/Training Program; PCP Nurse Practitioner Adult Health
DX: S06.0X0A Concussion without loss of consciousness, initial encounter (principal); F17.210 Nicotine dependence, cigarettes, uncomplicated; F17.290 Nicotine dependence, other tobacco product, uncomplicated; V49.9XXA Car occupant (driver) (passenger) injured in unspecified traffic accident, initial encounter
CPT/HCPCS: 36415; 80053; 81025; 93005; 96360; 99284; 70450; 72125; 84443; 85025; 93010